=== PATIENT | male | born 1990 | race Hispanic/Latino ===

== ENCOUNTER → 2018-05-03 | Day surgery (SDC) | payer SELFPAY ==
[~2018-05-03] MED LIST: CEFAZOLIN SOD 1 GM/D5W 50ML 50 ML IV ONE; DEXAMETHASONE SOD PHOS INJ 4 MG/ML VIAL ONE; FENTANYL CITRATE/PF 100MCG/2 ML INJ ONE; KETOROLAC TROMETHAMINE 30 MG/ML VIAL ONE; LIDOCAINE HCL 2% LOCAL INJ 5 ML SDV VIAL INJ ONE; MIDAZOLAM HCL 2 MG/2 ML VIAL ONE; ONDANSETRON HCL INJ 2 MG/ML VIAL ONE; PROPOFOL IV EMULSION 10 MG/ML 20 ML VIAL ONE; SEVOFLURANE INHAL SOLN 250 ML PEN BTL ONE
[2018-05-03 14:15] VITALS: BP 139/73
--- NOTE | 2018-05-03 15:25 | Operative Report ---
DATE OF PROCEDURE: May 03, 2018 TRAVERTINE INSTALLER: Brady Parker PA-C The patient was brought to the operating room for induction of anesthesia. Throughout this case, my PA's assistance was necessary for retraction of soft tissue and positioning of the extremity. This allows for efficient and technically successful execution of the operation and is considered medically necessary. PREOPERATIVE DIAGNOSIS: Left knee lateral meniscal tear. POSTOPERATIVE DIAGNOSIS: Left knee lateral meniscal tear. PROCEDURE: Left knee arthroscopy, partial lateral meniscectomy. INDICATIONS: The patient is a 27-year-old gentleman who has a several-month history of left knee pain. He did not have insurance and was unable to seek medical care. He ultimately presented to the office. An MRI showed a displaced complex bucket-handle tear of the lateral meniscus. The findings and options were discussed with the patient. We plan on a left knee arthroscopy with partial lateral meniscectomy versus repairs as indicated. The risks and benefits of the procedure were carefully explained. Long-term expectations were discussed. He stated he understood and wished to proceed. DESCRIPTION OF PROCEDURE: The patient was brought to the operating room and placed under general anesthetic. His left lower extremity was prepped and draped in a sterile manner. A preoperative time out was performed. A tourniquet had been placed on the upper thigh and was inflated to 300 mmHg. Standard arthroscopy portals were established. The knee was insufflated with sterile saline and systematically inspected. The patella femoral groove, medial compartment, medial and lateral gutters were unremarkable. The cruciate ligaments were intact and stable. There was a plastically deformed, displaced bucket-handle tear of the lateral meniscus. Attempts were made to reduce the meniscus. There was noted to be a horizontal component in addition to the peripheral detachment. Based on the patient's activity level and need to return to work, I did not feel that a meniscal repair would be feasible. Meniscal scissors were used to detach the anterior horn of the meniscal tear. Biting forceps and a mechanical shaver were used to debride the posterior horn down to a stable rim. [id number] photographs were taken. The arthroscopic instruments were removed. The portal incisions were closed with nylon stitches. A sterile bandage was applied. The patient was extubated and transported to the recovery room in stable condition. There was no blood loss, and all needle and sponge counts were correct. Job#: [id number]
== END | disposition home or self-care (01) ==
LOC: OR 09:45
PROVIDERS: ATTEND Specialist
DX: S83.252A Bucket-handle tear of lateral meniscus, current injury, left knee, initial encounter (principal); X50.1XXA Overexertion from prolonged static or awkward postures, initial encounter
CPT/HCPCS: J0690; J1100; J1885; J2001; J2250; J2405